=== PATIENT | female | born 1970 | race Caucasian/White ===

== ENCOUNTER 2016-08-17 11:37 | Outpatient (CLI) | payer OTHER | END 2016-08-17 11:38 | DX: E87.6 Hypokalemia (principal) ==

== ENCOUNTER 2017-04-19 15:36 | Outpatient (CLI) | payer OTHER ==
--- NOTE | 2017-04-21 11:22 | Ultrasound Report ---
DATE OF SERVICE: 04/19/2017 PELVIC ULTRASOUND TRANSABDOMINAL AND ENDOVAGINAL: 04/19/2017 COMPARISON: Pelvic ultrasound 11/25/2015. INDICATION: Menorrhagia. TECHNIQUE: Transabdominal pelvic ultrasound performed for global evaluation. Transvaginal pelvic ultrasound performed for detailed evaluation. Real-time scanning performed and static images obtained. FINDINGS: Again seen are uterine fibroids. There is a mid fundal fibroid measuring up to 3.3 cm, essentially unchanged. There is a fibroid of the right uterine body, which is submucosal that measures 2.8 cm. There is a mid anterior fibroid measuring up to 1.2 cm. These appear stable given differences in technique. The endometrial stripe measures 12 mm, normal for a premenopausal woman. Right ovarian cyst measures 3.8 cm. The ovaries appear otherwise unremarkable with normal appearing blood flow. There is trace simple appearing free fluid in the cul-de-sac. IMPRESSION: SUBMUCOSAL FIBROID MEASURES 2.8 CM. THIS AND OTHER UTERINE FIBROIDS APPEAR UNCHANGED DURING THE STUDY INTERVAL. RIGHT OVARIAN CYST VERSUS DOMINANT FOLLICLE. TD: 04/20/2017 11:01 AUBREE
== END 2017-04-19 15:37 | disposition home or self-care (01) ==
LOC: DI 15:36
PROVIDERS: ATTEND Physician Assistant Medical
DX: D25.0 Submucous leiomyoma of uterus (principal); D25.9 Leiomyoma of uterus, unspecified
CPT/HCPCS: 76830; 76856

== ENCOUNTER 2017-05-23 09:30 | Outpatient (CLI) | payer OTHER ==
[2017-05-23 13:10] LABS: BASOPHILS % (AUTO) 0.6 %; EOSINOPHILS # (AUTO) 0.1 10^3/uL (0.0-0.7); EOSINOPHILS % (AUTO) 2.4 %; HGB - HEMOGLOBIN 11.1 g/dL (12.0-16.0); LYMPHOCYTES # (AUTO) 1.4 10^3/uL (1.5-3.5); LYMPHOCYTES % (AUTO) 29.5 %; MEAN CORPUSCULAR HEMOGLOBIN 24.9 pg (27.0-31.0); MEAN CORPUSCULAR HGB CONC 33.3 g/dL (32.0-36.0); MEAN PLATELET VOLUME 7.9 fL (7.9-10.8); MONOCYTES # (AUTO) 0.2 10^3/uL (0.0-1.0); MONOCYTES % (AUTO) 4.9 %; NEUTROPHILS # (AUTO) 2.9 10^3/uL (1.5-6.6); NEUTROPHILS % (AUTO) 62.6 %; PLT - PLATELET COUNT 233 10^3/uL (130-450); RED BLOOD COUNT 4.44 10^6/uL (4.20-5.40); RED CELL DISTRIBUTION WIDTH 15.3 % (12.0-15.0); WHITE BLOOD COUNT 4.6 x10^3/uL (4.8-10.8)
[2017-05-23 13:37] LABS: ALBUMIN 4.5 g/dL (3.2-5.5); ALBUMIN/GLOBULIN RATIO 1.7 (1.0-2.2); ALKALINE PHOSPHATASE 38 IU/L (42-121); ALT ALANINE AMINOTRANSFERASE 25 IU/L (10-60); AST ASPARTATE AMINOTRANSFERASE 17 IU/L (10-42); BILIRUBIN,TOTAL 0.4 mg/dL (0.2-1.0); BUN - BLOOD UREA NITROGEN 15 mg/dL (6-20); CALCIUM 8.8 mg/dL (8.5-10.3); CARBON DIOXIDE - CO2 26 mmol/L (21-32); CHLORIDE 103 mmol/L (101-111); CHOL/HDL RATIO 5.3 (<4.4); CHOLESTEROL 208 mg/dL; CREATININE 0.5 mg/dL (0.4-1.0); GFR - MDRD 133 (>89); GLUCOSE 252 mg/dL (70-100); HDL CHOLESTEROL 39 mg/dL; LDL CHOLESTEROL,CALCULATED 121 mg/dL; LDL/HDL RATIO 3.1 (<4.4); SODIUM 133 mmol/L (135-145); TOTAL PROTEIN 7.1 g/dL (6.7-8.2); VLDL CHOLESTEROL 48 mg/dL
[2017-05-23 14:20] LABS: HB2 TOTAL 11.8 g/dL; HEMOGLOBIN A1C 0.86 g/dL; HEMOGLOBIN A1C % 8.8 % (4.6-6.2)
== END 2017-05-23 09:31 | disposition home or self-care (01) ==
LOC: LAB.WCP 09:30
PROVIDERS: ATTEND Physician Assistant Medical
DX: Z00.00 Encounter for general adult medical examination without abnormal findings (principal); E11.9 Type 2 diabetes mellitus without complications
CPT/HCPCS: 36415; 80053; 80061; 82043; 83036; 83721; 84443; 85025

== ENCOUNTER 2017-06-08 15:30 | Outpatient (CLI) | payer OTHER | END 2017-06-08 15:31 | disposition home or self-care (01) | LOC: LAB.WCP 15:30 | PROVIDERS: ATTEND Physician Assistant Medical | DX: J06.9 Acute upper respiratory infection, unspecified (principal) | CPT/HCPCS: 87275; 87276 ==

== ENCOUNTER 2017-09-21 08:00 | Outpatient (CLI) | payer OTHER ==
[2017-09-21 12:46] LABS: HB2 TOTAL 14.4 g/dL; HEMOGLOBIN A1C 1.45 g/dL; HEMOGLOBIN A1C % 11.4 % (4.6-6.2)
[2017-09-21 12:50] LABS: ALBUMIN 3.9 g/dL (3.2-5.5); ALBUMIN/GLOBULIN RATIO 1.3 (1.0-2.2); ALKALINE PHOSPHATASE 44 IU/L (42-121); ALT ALANINE AMINOTRANSFERASE 22 IU/L (10-60); AST ASPARTATE AMINOTRANSFERASE 20 IU/L (10-42); BILIRUBIN,TOTAL 0.5 mg/dL (0.2-1.0); BUN - BLOOD UREA NITROGEN 14 mg/dL (6-20); CALCIUM 8.5 mg/dL (8.5-10.3); CARBON DIOXIDE - CO2 26 mmol/L (21-32); CHLORIDE 97 mmol/L (101-111); CHOL/HDL RATIO 4.9 (<4.4); CHOLESTEROL 224 mg/dL; CREATININE 0.5 mg/dL (0.4-1.0); GFR - MDRD 133 (>89); GLUCOSE 223 mg/dL (70-100); HDL CHOLESTEROL 46 mg/dL; LDL CHOLESTEROL,CALCULATED 129 mg/dL; LDL/HDL RATIO 2.8 (<4.4); SODIUM 131 mmol/L (135-145); TOTAL PROTEIN 6.8 g/dL (6.7-8.2); VLDL CHOLESTEROL 49 mg/dL
== END 2017-09-21 08:01 | disposition home or self-care (01) ==
LOC: LAB.WCP 08:00
PROVIDERS: ATTEND Physician Assistant Medical
DX: E11.9 Type 2 diabetes mellitus without complications (principal)
CPT/HCPCS: 36415; 80053; 80061; 83036; 83721

== ENCOUNTER 2017-09-21 14:16 | Outpatient (CLI) | payer OTHER ==
--- NOTE | 2017-09-21 18:19 | XRAY Report ---
RIGHT KNEE, THREE VIEWS: 09/21/2017 HISTORY: Pain. FINDINGS: Three views of the right knee show no evidence of fracture, malalignment, joint space narrowing, joint effusion, soft tissue swelling or other abnormality. IMPRESSION: NEGATIVE THREE VIEW RIGHT KNEE. TD: 09/21/2017 16:23
== END 2017-09-21 14:17 | disposition home or self-care (01) ==
LOC: DI 14:16
PROVIDERS: ATTEND Physician Assistant Medical
DX: M25.561 Pain in right knee (principal); E11.9 Type 2 diabetes mellitus without complications
CPT/HCPCS: 36415; 80053; 80061; 83036; 83721

== ENCOUNTER 2017-10-11 15:00 | Outpatient (CLI) | payer OTHER ==
[2017-10-11 18:59] LABS: BASOPHILS % (AUTO) 0.5 %; EOSINOPHILS # (AUTO) 0.2 10^3/uL (0.0-0.7); EOSINOPHILS % (AUTO) 3.1 %; HGB - HEMOGLOBIN 13.2 g/dL (12.0-16.0); LYMPHOCYTES # (AUTO) 1.9 10^3/uL (1.5-3.5); MEAN CORPUSCULAR HEMOGLOBIN 26.7 pg (27.0-31.0); MEAN CORPUSCULAR HGB CONC 33.8 g/dL (32.0-36.0); MEAN PLATELET VOLUME 7.8 fL (7.9-10.8); MONOCYTES # (AUTO) 0.2 10^3/uL (0.0-1.0); MONOCYTES % (AUTO) 3.7 %; NEUTROPHILS # (AUTO) 4.2 10^3/uL (1.5-6.6); NEUTROPHILS % (AUTO) 63.7 %; PLT - PLATELET COUNT 265 10^3/uL (130-450); RED BLOOD COUNT 4.94 10^6/uL (4.20-5.40); RED CELL DISTRIBUTION WIDTH 17.4 % (12.0-15.0); WHITE BLOOD COUNT 6.7 x10^3/uL (4.8-10.8)
[2017-10-11 19:13] LABS: ALBUMIN 4.4 g/dL (3.2-5.5); ALBUMIN/GLOBULIN RATIO 1.6 (1.0-2.2); BILIRUBIN,TOTAL 0.5 mg/dL (0.2-1.0); CALCIUM 9.3 mg/dL (8.5-10.3); CREATININE 0.6 mg/dL (0.4-1.0); TOTAL PROTEIN 7.2 g/dL (6.7-8.2)
== END 2017-10-11 15:01 | disposition home or self-care (01) ==
LOC: LAB.WCP 15:00
PROVIDERS: ATTEND Family Medicine
DX: R10.9 Unspecified abdominal pain (principal)
CPT/HCPCS: 36415; 80053; 83690; 85025

== ENCOUNTER 2017-10-26 06:15 | Outpatient (CLI) | payer OTHER ==
[2017-10-26] MEDS ORDERED: IOPAMIDOL-300 100 ML VIAL ONE (06:33)
[2017-10-26] MEDS ORDERED: IOPAMIDOL-300 50 ML VIAL ONE ×2 (06:33→07:10)
[2017-10-26] MEDS ORDERED: IOPAMIDOL-300 50 ML VIAL PO ONE (07:44)
[2017-10-26] MEDS ORDERED: IOPAMIDOL-300 100 ML VIAL IVP ONE (07:44)
--- NOTE | 2017-10-26 09:40 | CT Report ---
Procedure Date: 10/26/2017 Accession Number: [id number] / [id number] Procedure: CT - Abdomen/Pelvis W/ CPT Code: FULL RESULT: EXAM: Abdomen/Pelvis W/ DATE: 10/26/2017 7:40 AM CLINICAL HISTORY: ABDOMINAL PAIN COMPARISON: Pelvic ultrasound 04/19/2017 TECHNIQUE: Routine helical CT imaging was performed through the abdomen and pelvis. IV contrast: 100 mL Isovue 300. Enteric contrast: Yes. Reconstructions: Coronal and sagittal. In accordance with CT protocol optimization, one or more of the following dose reduction techniques were utilized for this exam: automated exposure control, adjustment of mA and/or KV based on patient size, or use of iterative reconstructive technique. FINDINGS: Lung Bases: Unremarkable. Liver: Normal. No masses. Gallbladder/Bile Ducts: Postoperative changes of cholecystectomy. Spleen: Normal. Pancreas: Normal. Adrenal Glands: Normal. Kidneys: Normal. No masses or hydronephrosis. Peritoneal Cavity/Bowel: Normal. No free fluid, free air or adenopathy. No masses or acute inflammatory process. Pelvic Organs: The uterus demonstrates leiomyomatous, better evaluated on previous ultrasound. No free fluid is present. No pelvic adenopathy. Vasculature: No aneurysms or other significant abnormality. Bones: No significant abnormality. Other: None. IMPRESSION: Leiomyomatous uterus. Otherwise, normal CT of the abdomen and pelvis. [facility]
== END 2017-10-26 06:16 | disposition home or self-care (01) ==
LOC: DI 06:15
PROVIDERS: ATTEND Family Medicine
DX: D25.9 Leiomyoma of uterus, unspecified (principal)
CPT/HCPCS: 74177; Q9967

== ENCOUNTER 2018-01-17 09:15 | Outpatient (CLI) | payer OTHER | END 2018-01-17 09:16 | LOC: LAB.WCP 09:15 | PROVIDERS: ATTEND Physician Assistant Medical | DX: N76.0 Acute vaginitis (principal) | CPT/HCPCS: 87480; 87510; 87660 ==

== ENCOUNTER 2018-01-20 08:00 | Outpatient (CLI) | payer OTHER | END 2018-01-20 08:01 | disposition home or self-care (01) | LOC: LAB.R 08:00 | PROVIDERS: ATTEND Physician Assistant | DX: N76.0 Acute vaginitis (principal) | CPT/HCPCS: 87491; 87591 ==

== ENCOUNTER → 2018-02-22 | Outpatient (CLI) | payer OTHER | LOC: LAB.WCP 13:30 | PROVIDERS: ATTEND Physician Assistant Medical | DX: Z20.2 Contact with and (suspected) exposure to infections with a predominantly sexual mode of transmission (principal) | CPT/HCPCS: 87491; 87591 ==

== ENCOUNTER 2018-06-22 09:33 | Outpatient (CLI) | payer OTHER ==
--- NOTE | 2018-06-22 14:53 | XRAY Report ---
Reason: KNEE PAIN, LEFT Procedure Date: 06/22/2018 Accession Number: [id number] / [id number] Procedure: WCP - Knee 3 View LT CPT Code: FULL RESULT: EXAM: LEFT KNEE RADIOGRAPHY EXAM DATE: 06/22/2018 09:48 AM. CLINICAL HISTORY: KNEE PAIN, LEFT. COMPARISON: KNEE 3 VIEW RT 09/21/2017 2:24 PM. TECHNIQUE: 3 views. FINDINGS: Bones: Normal. No fractures or bone lesions. Joints: Normal. No effusion. No subluxations. Soft Tissues: Normal. No soft tissue swelling. IMPRESSION: Normal knee radiography. [facility]
== END 2018-06-22 09:34 | disposition home or self-care (01) ==
LOC: DI.WCP 09:33
PROVIDERS: ATTEND Physician Assistant Medical
DX: M25.562 Pain in left knee (principal); E11.9 Type 2 diabetes mellitus without complications; Z20.2 Contact with and (suspected) exposure to infections with a predominantly sexual mode of transmission
CPT/HCPCS: 36415; 80053; 80061; 81599; 83036; 86695; 86696; 87389; 87491; 87591

== ENCOUNTER 2018-06-22 10:00 | Outpatient (CLI) | payer OTHER ==
[2018-06-22 14:10] LABS: ALBUMIN/GLOBULIN RATIO 1.8 (1.0-2.2); ALKALINE PHOSPHATASE 47 IU/L (42-121); ALT ALANINE AMINOTRANSFERASE 25 IU/L (10-60); AST ASPARTATE AMINOTRANSFERASE 18 IU/L (10-42); BILIRUBIN,TOTAL 0.5 mg/dL (0.2-1.0); BUN - BLOOD UREA NITROGEN 16 mg/dL (6-20); CALCIUM 9.8 mg/dL (8.5-10.3); CARBON DIOXIDE - CO2 27 mmol/L (21-32); CHLORIDE 101 mmol/L (101-111); CHOL/HDL RATIO 4.2 (<4.4); CHOLESTEROL 221 mg/dL; CREATININE 0.4 mg/dL (0.4-1.0); GFR - MDRD 171 (>89); GLUCOSE 232 mg/dL (70-100); HDL CHOLESTEROL 53 mg/dL; LDL CHOLESTEROL,CALCULATED 134 mg/dL; LDL/HDL RATIO 2.5 (<4.4); SODIUM 137 mmol/L (135-145); TOTAL PROTEIN 7.8 g/dL (6.7-8.2); VLDL CHOLESTEROL 34 mg/dL
[2018-06-22 14:49] LABS: HB2 TOTAL 14.7 g/dL; HEMOGLOBIN A1C 1.09 g/dL; HEMOGLOBIN A1C % 8.9 % (4.6-6.2)
[2018-06-23 13:22] LABS: HIV AG/AB 4TH GEN NON-REACTIVE (NON-REACTIVE)
[2018-06-24 10:31] LABS: HSV 1 IGG TYPE SPECIFIC AB 34.9 index; HSV 2 IGG TYPE SPECIFIC AB 8.36 index
== END 2018-06-22 10:01 | disposition home or self-care (01) ==
LOC: LAB.WCP 10:00
PROVIDERS: ATTEND Physician Assistant Medical
DX: E11.9 Type 2 diabetes mellitus without complications (principal); Z20.2 Contact with and (suspected) exposure to infections with a predominantly sexual mode of transmission
CPT/HCPCS: 36415; 80053; 80061; 81599; 83036; 83721; 86695; 86696; 87389; 87491; 87591

== ENCOUNTER 2019-10-03 10:59 | Outpatient (CLI) | payer OTHER ==
--- NOTE | 2019-10-03 11:55 | XRAY Report ---
Reason: RIGHT WRIST CONTUSION Procedure Date: 10/03/2019 Accession Number: [id number] / [id number] Procedure: WCP - Wrist 3 View RT CPT Code: Final Report FULL RESULT: PROCEDURE: Wrist 3 View RT INDICATIONS: RIGHT WRIST CONTUSION TECHNIQUE: 3 views of the wrist were acquired. COMPARISON: Report from radiograph 09/17/2019 FINDINGS: Bones: No fractures or dislocations. No suspicious bony lesions. Soft tissues: No suspicious soft tissue calcifications. There is mild dorsal soft tissue swelling, mainly over the distal metadiaphyses of the radius and ulna. IMPRESSION: 1. Intact right wrist without radiographic evidence of healing fracture. There is mild soft tissue swelling dorsally and soft tissue injury or osseous contusion could be considered.. Reviewed by: Belle Castillo MD on 10/03/2019 11:54 AM PDT Approved by: Belle Castillo MD on 10/03/2019 11:54 AM PDT Station ID: [id number]
== END 2019-10-03 23:59 | disposition home or self-care (01) ==
LOC: DI.WCP 10:59
PROVIDERS: ATTEND Physician Assistant Medical
DX: S60.211D Contusion of right wrist, subsequent encounter (principal)

== ENCOUNTER 2020-01-10 08:00 | Outpatient (CLI) | payer OTHER ==
[2020-01-10 11:57] LABS: CREATININE,URINE 43.7 mg/dL; MICROALBUM/CREATININE RATIO,UR 4.6 ug/mg (<30.0); MICROALBUMIN,URINE 0.2 mg/dL (0-300.0)
[2020-01-10 12:04] LABS: ALBUMIN 4.7 g/dL (3.2-5.5); ALBUMIN/GLOBULIN RATIO 1.9 (1.0-2.2); ALKALINE PHOSPHATASE 47 IU/L (42-121); ALT ALANINE AMINOTRANSFERASE 35 IU/L (10-60); AST ASPARTATE AMINOTRANSFERASE 19 IU/L (10-42); BILIRUBIN,TOTAL 0.9 mg/dL (0.2-1.0); BUN - BLOOD UREA NITROGEN 14 mg/dL (6-20); CALCIUM 9.2 mg/dL (8.5-10.3); CARBON DIOXIDE - CO2 27 mmol/L (21-32); CHLORIDE 99 mmol/L (101-111); CHOLESTEROL 190 mg/dL; CREATININE 0.5 mg/dL (0.4-1.0); GLUCOSE 223 mg/dL (70-100); HDL CHOLESTEROL 38 mg/dL; LDL CHOLESTEROL,CALCULATED 79 mg/dL; LDL/HDL RATIO 2.1 (<4.4); SODIUM 133 mmol/L (135-145); TOTAL PROTEIN 7.2 g/dL (6.7-8.2); VLDL CHOLESTEROL 73 mg/dL
[2020-01-10 12:23] LABS: HEMOGLOBIN A1c% 10.3 % (4.27-6.07)
== END 2020-01-10 23:59 | disposition home or self-care (01) ==
LOC: LAB.WCP 08:00
PROVIDERS: ATTEND Physician Assistant Medical
DX: E11.9 Type 2 diabetes mellitus without complications (principal)
CPT/HCPCS: 36415; 80053; 80061; 82043; 82570; 83036; 83721; 84443

== ENCOUNTER 2020-05-23 07:27 | Outpatient (CLI) | payer OTHER ==
[2020-05-23 12:54] LABS: CALCIUM 9.6 mg/dL (8.5-10.3); CREATININE 0.5 mg/dL (0.4-1.0)
[2020-05-23 13:37] LABS: HEMOGLOBIN A1c% 8.2 % (4.27-6.07)
== END 2020-05-23 23:59 | disposition home or self-care (01) ==
LOC: LAB.WCP 07:27
PROVIDERS: ATTEND Physician Assistant Medical
DX: E11.9 Type 2 diabetes mellitus without complications (principal)
CPT/HCPCS: 36415; 80048; 83036

== ENCOUNTER 2020-09-08 08:00 | Outpatient (CLI) | payer OTHER ==
[2020-09-08 12:22] LABS: ALBUMIN 4.9 g/dL (3.2-5.5); ALBUMIN/GLOBULIN RATIO 1.8 (1.0-2.2); ALKALINE PHOSPHATASE 54 IU/L (42-121); ALT ALANINE AMINOTRANSFERASE 32 IU/L (10-60); AST ASPARTATE AMINOTRANSFERASE 16 IU/L (10-42); BILIRUBIN,TOTAL 0.5 mg/dL (0.2-1.0); BUN - BLOOD UREA NITROGEN 15 mg/dL (6-20); CALCIUM 9.7 mg/dL (8.5-10.3); CARBON DIOXIDE - CO2 28 mmol/L (21-32); CHLORIDE 97 mmol/L (101-111); CHOL/HDL RATIO 6.1 (<4.4); CHOLESTEROL 268 mg/dL; CREATININE 0.7 mg/dL (0.4-1.0); GFR - MDRD 89 (>89); GLUCOSE 260 mg/dL (70-100); HDL CHOLESTEROL 44 mg/dL; SODIUM 132 mmol/L (135-145); TOTAL PROTEIN 7.7 g/dL (6.7-8.2); TRIGLYCERIDES 465 mg/dL
[2020-09-08 12:50] LABS: ESTIMATED AVERAGE GLUCOSE 235 mg/dL (70-100); HEMOGLOBIN A1c% 9.8 % (4.27-6.07)
[2020-09-08 12:57] LABS: LDL CHOLESTEROL,DIRECT 133 mg/dL
== END 2020-09-08 23:59 | disposition home or self-care (01) ==
LOC: LAB.WCP 08:00
PROVIDERS: ATTEND Physician Assistant Medical
DX: E11.9 Type 2 diabetes mellitus without complications (principal)
CPT/HCPCS: 36415; 80053; 80061; 83036; 83721

== ENCOUNTER → 2020-11-24 | Outpatient (CLI) | payer OTHER | LOC: LAB.N 08:00 | PROVIDERS: ATTEND Nurse Practitioner | DX: R05 Cough (principal); Z20.822 Contact with and (suspected) exposure to COVID-19 ==

== ENCOUNTER 2020-11-27 13:21 | Outpatient (CLI) | payer OTHER ==
--- NOTE | 2020-11-27 15:11 | XRAY Report ---
PROCEDURE: Ankle 3 View LT INDICATIONS: CONTUSION TO LEFT ANKLE TECHNIQUE: 3 views of the ankle were acquired. COMPARISON: None. FINDINGS: Bones: No acute fractures or dislocations. Ankle mortise is normally aligned. No suspicious bony l esions. Soft tissues: No suspicious soft tissue calcification. Soft tissue edema is seen at the medial ankle. IMPRESSION: No acute osseous abnormality. If there is clinical concern or persistent symptoms, addit ional imaging such as repeat radiographs or advanced imaging (e.g. CT, MRI) may be helpful for furthe r evaluation. Reviewed by: Marino Flores MD on 11/27/2020 3:10 PM PDT Approved by: Marino Flores MD on 11/27/2020 3:10 PM PDT Station ID: [id number]
--- NOTE | 2020-11-27 15:12 | XRAY Report ---
PROCEDURE: Foot 3 View LT INDICATIONS: CONTUSION TO LEFT ANKLE TECHNIQUE: 3 views of the foot were acquired. COMPARISON: None. FINDINGS: Bones: No acute fractures or dislocations. No suspicious bony lesions. Mild degenerative changes at the first metatarsophalangeal joint. Soft tissues: Soft tissue edema is seen at the medial aspect of the hindfoot. IMPRESSION: No acute osseous abnormality. If there is clinical concern or persistent symptoms, additional imaging such as repeat radiographs or advanced imaging (e.g. CT, MRI) may be helpful for further evaluation. Reviewed by: Marino Flores MD on 11/27/2020 3:11 PM PDT Approved by: Marino Flores MD on 11/27/2020 3:11 PM PDT Station ID: [id number]
== END 2020-11-27 23:59 | disposition home or self-care (01) ==
LOC: DI.N 13:21
PROVIDERS: ATTEND Physician Assistant Medical
DX: S90.02XA Contusion of left ankle, initial encounter (principal)

== ENCOUNTER 2021-01-01 07:49 | Outpatient (CLI) | payer OTHER ==
--- NOTE | 2021-01-01 14:33 | XRAY Report ---
PROCEDURE: Foot 3 View LT INDICATIONS: LEFT FOOT PAIN TECHNIQUE: 3 weight bearing views of the left foot and single AP weightbearing view of the right amanda t were acquired. COMPARISON: 11/27/2020 FINDINGS: Bones: No fractures or dislocations. No suspicious bony lesions. Normal alignment on weightbearing views. Soft tissues: No tibiotalar joint effusion. Achilles tendon appears normal. IMPRESSION: Left foot without acute osseous abnormalities. Normal alignment on weightbearing views. If there is continued clinical concern for pathology or occult fracture, consider advanced imaging ( CT, MRI, bone scan) if symptoms persist. Reviewed by: Andry Perales MD on 01/01/2021 2:31 PM PDT Approved by: Andry Perales MD on 01/01/2021 2:31 PM PDT Station ID: [id number]
== END 2021-01-01 23:59 | disposition home or self-care (01) ==
LOC: DI.N 07:49
PROVIDERS: ATTEND Physician Assistant
DX: M79.672 Pain in left foot (principal)

== ENCOUNTER 2021-05-07 08:17 | Outpatient (CLI) | payer OTHER ==
[2021-05-07 12:16] LABS: BASOPHILS % (AUTO) 0.8 %; EOSINOPHILS # (AUTO) 0.1 10^3/uL (0.0-0.7); EOSINOPHILS % (AUTO) 3.6 %; HCT - HEMATOCRIT 39.9 % (37.0-47.0); HGB - HEMOGLOBIN 13.8 g/dL (12.0-16.0); LYMPHOCYTES # (AUTO) 1.3 10^3/uL (1.5-3.5); LYMPHOCYTES % (AUTO) 33.7 %; MEAN CORPUSCULAR HGB CONC 34.6 g/dL (32.0-36.0); MEAN CORPUSCULAR VOLUME 83.8 fL (81.0-99.0); MEAN PLATELET VOLUME 9.9 fL (7.9-10.8); MONOCYTES # (AUTO) 0.2 10^3/uL (0.0-1.0); MONOCYTES % (AUTO) 4.7 %; NEUTROPHILS # (AUTO) 2.2 10^3/uL (1.5-6.6); NEUTROPHILS % (AUTO) 56.9 %; PLT - PLATELET COUNT 208 10^3/uL (130-450); RED BLOOD COUNT 4.76 10^6/uL (4.20-5.40); RED CELL DISTRIBUTION WIDTH 11.6 % (12.0-15.0); WHITE BLOOD COUNT 3.9 x10^3/uL (4.8-10.8)
[2021-05-07 12:47] LABS: CALCIUM 9.6 mg/dL (8.5-10.3); CREATININE 0.4 mg/dL (0.4-1.0); CREATININE,URINE 62.9 mg/dL; MICROALBUMIN,URINE 2.2 mg/dL (0-300.0); POTASSIUM 4.4 mmol/L (3.5-5.0)
[2021-05-07 12:53] LABS: THYROID STIMULATING HORMONE 0.49 uIU/mL (0.34-5.60)
[2021-05-07 18:13] LABS: ESTIMATED AVERAGE GLUCOSE 214 mg/dL (70-100); HEMOGLOBIN A1c% 9.1 % (4.27-6.07)
== END 2021-05-07 23:59 | disposition home or self-care (01) ==
LOC: LAB.WCP 08:17
PROVIDERS: ATTEND Physician Assistant Medical
DX: E11.9 Type 2 diabetes mellitus without complications (principal); K21.9 Gastro-esophageal reflux disease without esophagitis
CPT/HCPCS: 36415; 80048; 82043; 82570; 83036; 84443; 85025

== ENCOUNTER 2021-07-29 11:06 | Outpatient (CLI) | payer OTHER ==
[2021-07-29 18:45] LABS: ALBUMIN/GLOBULIN RATIO 1.8 (1.0-2.2); ALKALINE PHOSPHATASE 46 IU/L (42-121); ALT ALANINE AMINOTRANSFERASE 27 IU/L (10-60); AST ASPARTATE AMINOTRANSFERASE 16 IU/L (10-42); BILIRUBIN,TOTAL 0.8 mg/dL (0.2-1.0); BUN - BLOOD UREA NITROGEN 19 mg/dL (6-20); CALCIUM 9.9 mg/dL (8.5-10.3); CARBON DIOXIDE - CO2 27 mmol/L (21-32); CHLORIDE 100 mmol/L (101-111); CHOL/HDL RATIO 3.9 (<4.4); CHOLESTEROL 165 mg/dL; CREATININE 0.7 mg/dL (0.4-1.0); GFR - MDRD 89 (>89); GLUCOSE 140 mg/dL (70-100); HDL CHOLESTEROL 42 mg/dL; LDL CHOLESTEROL,CALCULATED 84 mg/dL; POTASSIUM 4.5 mmol/L (3.5-5.0); SODIUM 137 mmol/L (135-145); TOTAL PROTEIN 7.8 g/dL (6.7-8.2); TRIGLYCERIDES 196 mg/dL; VLDL CHOLESTEROL 39 mg/dL
== END 2021-07-29 11:07 | disposition home or self-care (01) ==
LOC: LAB.N 11:06
PROVIDERS: ATTEND Physician Assistant Medical
DX: E78.5 Hyperlipidemia, unspecified (principal)
CPT/HCPCS: 36415; 80053; 80061; 81599; 83036; 83721

== ENCOUNTER 2021-08-05 08:07 | Outpatient (CLI) | payer OTHER ==
--- NOTE | 2021-08-05 17:11 | XRAY Report ---
PROCEDURE: Cervical Spine 2 View INDICATIONS: CERVICAL RADICULOPATHY TECHNIQUE: 2 view(s) of the cervical spine were acquired. COMPARISON: None. FINDINGS: Bones: No fractures or dislocations to the C7-T1 level. Minimal 2 mm anterolisthesis of C4 on C5 is seen. Mild degenerative endplate changes are seen at C4-5 and C5-6 levels. The lateral masses of C1 appear intact on the odontoid view. No suspicious bony lesions. Soft tissues: No prevertebral soft tissue swelling. IMPRESSION: 2 mm anterolisthesis of C4 on C5. No acute fracture or dislocation. Degenerative disc di sease in mid to lower cervical spine. Reviewed by: Tesfaye Ellis MD on 08/05/2021 5:10 PM PDT Approved by: Tesfaye Ellis MD on 08/05/2021 5:10 PM PDT Station ID: [id number]
== END 2021-08-05 08:08 | disposition home or self-care (01) ==
LOC: DI.N 08:07
PROVIDERS: ATTEND Physician Assistant Medical
DX: M50.321 Other cervical disc degeneration at C4-C5 level (principal); M43.12 Spondylolisthesis, cervical region

== ENCOUNTER 2022-01-26 11:27 | Outpatient (CLI) | payer OTHER ==
--- NOTE | 2022-01-26 16:55 | XRAY Report ---
PROCEDURE: Chest 2 View X-Ray INDICATIONS: PLEURITIC CHEST PX TECHNIQUE: 2 view(s) of the chest. COMPARISON: None. FINDINGS: Surgical changes and devices: Cholecystectomy clips. Lungs and pleura: No pleural effusions or pneumothorax. Lungs are clear. Mediastinum: Mediastinal contours are normal. Heart size is normal. Bones and chest wall: No suspicious bony abnormalities. Soft tissues appear unremarkable. IMPRESSION: No acute cardiopulmonary disease. Reviewed by: Belle Castillo MD on 01/26/2022 4:54 PM PDT Approved by: Belle Castillo MD on 01/26/2022 4:54 PM PDT Station ID: [id number]
== END 2022-01-26 11:28 | disposition home or self-care (01) ==
LOC: DI.N 11:27
PROVIDERS: ATTEND Family Medicine
DX: R07.81 Pleurodynia (principal)

== ENCOUNTER 2022-02-15 09:25 | Outpatient (CLI) | payer OTHER ==
[2022-02-15 13:07] LABS: ESTIMATED AVERAGE GLUCOSE 217 mg/dL (70-100); HEMOGLOBIN A1c% 9.2 % (4.27-6.07)
[2022-02-15 13:09] LABS: ALBUMIN 4.9 g/dL (3.2-5.5); ALKALINE PHOSPHATASE 49 IU/L (42-121); ALT ALANINE AMINOTRANSFERASE 30 IU/L (10-60); AST ASPARTATE AMINOTRANSFERASE 17 IU/L (10-42); BILIRUBIN,TOTAL 0.6 mg/dL (0.2-1.0); BUN - BLOOD UREA NITROGEN 7 mg/dL (6-20); CHOL/HDL RATIO 4.1 (<4.4); CHOLESTEROL 197 mg/dL; CREATININE 0.4 mg/dL (0.4-1.0); GFR - MDRD 168 (>89); HDL CHOLESTEROL 48 mg/dL; LDL CHOLESTEROL,CALCULATED 113 mg/dL; LDL/HDL RATIO 2.4 (<4.4); TOTAL PROTEIN 7.3 g/dL (6.7-8.2); TRIGLYCERIDES 182 mg/dL; VLDL CHOLESTEROL 36 mg/dL
[2022-02-15 13:28] LABS: CALCIUM 9.6 mg/dL (8.5-10.3); CARBON DIOXIDE - CO2 26 mmol/L (21-32); CHLORIDE 103 mmol/L (101-111); GLUCOSE 209 mg/dL (70-100); POTASSIUM 4.2 mmol/L (3.5-5.0); SODIUM 138 mmol/L (135-145)
== END 2022-02-15 09:26 | disposition home or self-care (01) ==
LOC: LAB.N 09:25
PROVIDERS: ATTEND Physician Assistant Medical
DX: E11.9 Type 2 diabetes mellitus without complications (principal); E78.5 Hyperlipidemia, unspecified
CPT/HCPCS: 36415; 80053; 80061; 83036; 83721

== ENCOUNTER 2022-02-24 08:00 | Outpatient (CLI) | payer OTHER | END 2022-02-24 23:59 | disposition home or self-care (01) | LOC: LAB.WCP 08:00 | PROVIDERS: ATTEND Physician Assistant Medical | DX: R05.9 Cough, unspecified (principal); Z20.822 Contact with and (suspected) exposure to COVID-19 ==

== ENCOUNTER 2022-04-26 14:43 | Outpatient (CLI) | payer OTHER ==
[2022-04-26] MEDS ORDERED: iohexoL-300 100 ML VIAL ONE (14:47)
[2022-04-26] MEDS ORDERED: DIATRIZOATE MEGLU/DIATRIZO SOD 30 ML BOTTLE PO ONE ×2 (14:47→16:21)
[2022-04-26 15:09] LABS: ALBUMIN 4.6 g/dL (3.2-5.5); ALBUMIN/GLOBULIN RATIO 1.5 (1.0-2.2); BILIRUBIN,TOTAL 0.5 mg/dL (0.2-1.0); CALCIUM 9.5 mg/dL (8.5-10.3); CREATININE 0.6 mg/dL (0.4-1.0); POTASSIUM 4.3 mmol/L (3.5-5.0); TOTAL PROTEIN 7.6 g/dL (6.7-8.2)
[2022-04-26] MEDS ORDERED: iohexoL-300 100 ML VIAL IVP ONE (16:20)
--- NOTE | 2022-04-26 16:23 | CT Report ---
PROCEDURE: ABDOMEN/PELVIS W INDICATIONS: LEFT LOWER QUAD ABD PAIN CONTRAST: 100mL Omni 300 TECHNIQUE: After the administration of IV and oral contrast, 5 mm thick sections acquired from the diaphragms to the symphysis. 5 mm thick coronal and sagittal reformats were acquired. For radiation dose reducti on, the following was used: automated exposure control, adjustment of mA and/or kV according to sona ent size. COMPARISON: 10/26/2017. FINDINGS: Image quality: Excellent. ABDOMEN: Lung bases: Lung bases are clear. Heart size is normal. Solid organs: The spleen is normal in size and enhancement. There is hepatomegaly, no discrete hepati c lesion. Gallbladder is surgically absent. Biliary system is non dilated. Pancreas enhances normal ly. No adrenal nodules. Kidneys demonstrate normal size and enhancement, without hydronephrosis. Peritoneum and bowel: There is no bowel obstruction. No gastric or small bowel wall thickening. Quest ionable ascending colon wall thickening is noted with mild narrowing of the lumen, no gross transvers e or descending colon wall thickening. No sigmoid colon wall thickening or mesenteric fat stranding. No abscess collection. No free fluid of free air. Mild fecal stasis in the colon is seen. Nodes and vessels: No retroperitoneal or mesenteric adenopathy by size criteria. Aorta and inferior vena cava are normal in size. Miscellaneous: No ventral hernias. PELVIS: Genitourinary: Bladder wall thickness is normal. Miscellaneous: No inguinal hernias or adenopathy. Bones: No suspicious bony lesions. No vertebral body compression fractures. IMPRESSION: 1. Questionable ascending colon wall thickening which may represent low-grade colitis. No other area of abnormal bowel wall thickening. No bowel obstruction. No abscess collection. No free fluid of free air. 2. Hepatomegaly, no discrete hepatic lesion. Prior cholecystectomy. Reviewed by: Tesfaye Ellis MD on 04/26/2022 4:22 PM PST Approved by: Tesfaye Ellis MD on 04/26/2022 4:22 PM PST Station ID: [id number]
== END 2022-04-26 14:44 | disposition home or self-care (01) ==
LOC: LAB 14:43
PROVIDERS: ATTEND Physician Assistant Medical
DX: R10.32 Left lower quadrant pain (principal); R16.0 Hepatomegaly, not elsewhere classified; Z90.49 Acquired absence of other specified parts of digestive tract
CPT/HCPCS: 36415; 74177; 80053; Q9963; Q9967

== ENCOUNTER 2022-07-10 09:15 | Outpatient (CLI) | payer OTHER ==
[2022-07-10 19:18] LABS: ALBUMIN 4.6 g/dL (3.2-5.5); ALBUMIN/GLOBULIN RATIO 1.7 (1.0-2.2); ALKALINE PHOSPHATASE 42 IU/L (42-121); ALT ALANINE AMINOTRANSFERASE 24 IU/L (10-60); AST ASPARTATE AMINOTRANSFERASE 15 IU/L (10-42); BILIRUBIN,TOTAL 0.9 mg/dL (0.2-1.0); BUN - BLOOD UREA NITROGEN 19 mg/dL (6-20); CALCIUM 9.4 mg/dL (8.5-10.3); CARBON DIOXIDE - CO2 27 mmol/L (21-32); CHLORIDE 105 mmol/L (101-111); CHOL/HDL RATIO 4.2 (<4.4); CHOLESTEROL 174 mg/dL; CREATININE 0.5 mg/dL (0.4-1.0); GFR - MDRD 130 (>89); GLUCOSE 170 mg/dL (70-100); HDL CHOLESTEROL 41 mg/dL; LDL CHOLESTEROL,CALCULATED 100 mg/dL; LDL/HDL RATIO 2.4 (<4.4); POTASSIUM 4.6 mmol/L (3.5-5.0); SODIUM 139 mmol/L (135-145); TOTAL PROTEIN 7.3 g/dL (6.7-8.2); TRIGLYCERIDES 164 mg/dL; VLDL CHOLESTEROL 33 mg/dL
[2022-07-11 09:19] LABS: ESTIMATED AVERAGE GLUCOSE 194 mg/dL (70-100); HEMOGLOBIN A1c% 8.4 % (4.27-6.07)
== END 2022-07-10 09:16 | disposition home or self-care (01) ==
LOC: LAB.N 09:15
PROVIDERS: ATTEND Physician Assistant Medical
DX: E11.9 Type 2 diabetes mellitus without complications (principal)
CPT/HCPCS: 36415; 80053; 80061; 83036; 83721

== ENCOUNTER 2022-07-27 07:03 | Day surgery (SDC) | payer OTHER ==
[2022-07-27] MEDS ORDERED: LACTATED RINGERS 1,000 ML IV ONE ×2 (07:11→09:09)
--- NOTE | 2022-07-27 07:48 | ANESTHESIA ---
Pre-Anesthesia VS, & Labs - Diagnosis screening - Procedure colonoscopy Vital Signs: Temp Pulse Resp BP Pulse Ox O2 Flow Rate 36 C L 89 16 134/75 H 96 07/27/22 07:15 07/27/22 07:15 07/27/22 07:15 07/27/22 07:15 07/27/22 07:15 Height: 5 ft Weight (kg): 59 kg Body Mass Index: 25.4 BMI Classification: Overweight - NPO Other (prep last at 4am) - Is Patient ?: No - Lab Results Current Lab Results: Laboratory Tests 07/27/22 07:39: POC Whole Bld Glucose 321 H Home Medications and Allergies Home Medications: Ambulatory Orders Empagliflozin [Jardiance] 1 tab PO DAILY 07/26/22 Rosuvastatin Calcium [Crestor] 1 tab PO DAILY 07/26/22 Sertraline [Zoloft] 1 tab PO DAILY 07/26/22 Loratadine [Claritin] 10 mg PO DAILY 08/26/14 Metformin HCl 1,000 mg PO BID 08/26/14 glipiZIDE [Glipizide] 10 mg PO DAILY 08/26/14 hydroCHLOROthiazide [Hydrochlorothiazide] 12.5 mg PO DAILY 08/26/14 lisinopriL [Lisinopril] 5 mg PO DAILY 08/26/14 Empagliflozin [Jardiance] 1 tab PO DAILY 07/26/22 Rosuvastatin Calcium [Crestor] 1 tab PO DAILY 07/26/22 Sertraline [Zoloft] 1 tab PO DAILY 07/26/22 Allergies/Adverse Reactions: Allergies Allergy/AdvReac Type Severity Reaction Status Date / Time No Known Drug Allergies Allergy Verified 07/26/22 13:02 Anes History & Medical History - Anesthetic History Anesthesia Complications: reports: No previous complications - Medical History Cardiovascular: reports: Hypertension Pulmonary: reports: None Gastrointestinal: reports: None Urinary: reports: None Musculoskeletal: reports: None Endocrine/Autoimmune: reports: Type 2 diabetes Skin: reports: None Smoking Status: Never smoker Psychosocial: reports: Alcohol (6 pack on weekends) History of Cancer?: No - Surgical History General: reports: Cholecystectomy, Appendectomy Gynecologic: reports: section, Tubal ligation Exam General: Alert Dental: WNL Mouth Opening: Greater than 4 Fingerbreadths Neck Mobility: Normal Mallampati classification: II Thyromental Distance: greater than 6 cm Respiratory: Lungs clear Cardiovascular: Regular rate Plan Anesthesia Type: Total IV Consent for Procedure(s) Verified and Reviewed: Yes Code Status: Attempt Resuscitation ASA classification: 2-Mild systemic disease Is this case an emergency?: No
[2022-07-27] MEDS ORDERED: INSULIN REGULAR HUMAN 300 UNIT/3 ML VIAL IVP ONE (07:50)
[2022-07-27] MEDS ORDERED: PROPOFOL 500 MG/50 ML 500 MG/50 ML VIAL ONE (08:01)
[2022-07-27] MEDS ORDERED: LIDOCAINE-PF 2% 10 ML AMP SUBQ ONE (08:47)
[2022-07-27 09:25] VITALS: BP 108/64
--- NOTE | 2022-07-27 10:15 | ANESTHESIA POST OP EVALUATION ---
Anesthesia Post Eval - Post Anesthesia Eval Vitals: Last Vital Signs Temp 36.4 C L 07/27/22 09:24 Pulse 90 07/27/22 09:24 Resp 16 07/27/22 09:24 BP 108/64 07/27/22 09:24 Pulse Ox 99 07/27/22 09:24 O2 Flow Rate CV Function Including HR & BP: Stable Pain Control: Satisfactory Nausea & Vomiting: Negative Mental Status: Baseline Respiratory Status: Airway Patent Hydration Status: Satisfactory Anesthesia Complications: None
== END 2022-07-27 07:04 | disposition home or self-care (01) ==
LOC: SDS 07:03
PROVIDERS: ATTEND Surgery
DX: Z12.11 Encounter for screening for malignant neoplasm of colon (principal); E11.9 Type 2 diabetes mellitus without complications; I10 Essential (primary) hypertension; Z79.84 Long term (current) use of oral hypoglycemic drugs; Z87.891 Personal history of nicotine dependence
CPT/HCPCS: 45378; J1815; J7120; 81025

== ENCOUNTER 2022-08-03 08:00 | Outpatient (CLI) | payer OTHER | END 2022-08-03 23:59 | disposition home or self-care (01) | LOC: LAB.WCP 08:00 | PROVIDERS: ATTEND Physician Assistant Medical | DX: R05.9 Cough, unspecified (principal); Z20.822 Contact with and (suspected) exposure to COVID-19 ==

== ENCOUNTER 2023-01-28 10:02 | Outpatient (CLI) | payer OTHER ==
[2023-01-28 12:31] LABS: CALCIUM 9.3 mg/dL (8.5-10.3); CREATININE 0.5 mg/dL (0.6-1.3); POTASSIUM 4.1 mmol/L (3.5-4.5)
[2023-01-28 13:22] LABS: ESTIMATED AVERAGE GLUCOSE 278 mg/dL (70-100); HEMOGLOBIN A1c% 11.3 % (4.27-6.07)
== END 2023-01-28 10:03 | disposition home or self-care (01) ==
LOC: LAB.N 10:02
PROVIDERS: ATTEND Physician Assistant Medical
DX: E11.9 Type 2 diabetes mellitus without complications (principal)
CPT/HCPCS: 36415; 80048; 83036

== ENCOUNTER 2023-04-04 09:01 | Outpatient (CLI) | payer OTHER ==
[2023-04-04 12:44] LABS: BASOPHILS % (AUTO) 0.4 %; EOSINOPHILS # (AUTO) 0.1 10^3/uL (0.0-0.7); EOSINOPHILS % (AUTO) 2.6 %; HCT - HEMATOCRIT 39.3 % (37.0-47.0); HGB - HEMOGLOBIN 13.3 g/dL (12.0-16.0); LYMPHOCYTES # (AUTO) 1.4 10^3/uL (1.5-3.5); LYMPHOCYTES % (AUTO) 31.3 %; MEAN CORPUSCULAR HEMOGLOBIN 29.2 pg (27.0-31.0); MEAN CORPUSCULAR HGB CONC 33.8 g/dL (32.0-36.0); MEAN CORPUSCULAR VOLUME 86.4 fL (81.0-99.0); MEAN PLATELET VOLUME 10.2 fL (7.9-10.8); MONOCYTES # (AUTO) 0.2 10^3/uL (0.0-1.0); MONOCYTES % (AUTO) 4.6 %; NEUTROPHILS # (AUTO) 2.7 10^3/uL (1.5-6.6); NEUTROPHILS % (AUTO) 60.7 %; PLT - PLATELET COUNT 211 10^3/uL (130-450); RED BLOOD COUNT 4.55 10^6/uL (4.20-5.40); RED CELL DISTRIBUTION WIDTH 12.5 % (12.0-15.0); WHITE BLOOD COUNT 4.5 x10^3/uL (4.8-10.8)
[2023-04-04 13:06] LABS: CREATININE,URINE 42.1 mg/dL
[2023-04-04 13:07] LABS: ESTIMATED AVERAGE GLUCOSE 166 mg/dL (70-100); HEMOGLOBIN A1c% 7.4 % (4.27-6.07); MICROALBUMIN,URINE < 0.7 mg/dL
[2023-04-04 13:14] LABS: ALBUMIN 4.9 g/dL (3.2-5.5); ALBUMIN/GLOBULIN RATIO 2.3 (1.0-2.2); ALKALINE PHOSPHATASE 42 IU/L (42-121); ALT ALANINE AMINOTRANSFERASE 18 IU/L (10-60); AST ASPARTATE AMINOTRANSFERASE 11 IU/L (10-42); BILIRUBIN,TOTAL 0.4 mg/dL (0.2-1.0); BUN - BLOOD UREA NITROGEN 15 mg/dL (6-20); CALCIUM 9.7 mg/dL (8.5-10.3); CARBON DIOXIDE - CO2 28 mmol/L (21-32); CHLORIDE 105 mmol/L (101-111); CHOL/HDL RATIO 3.3 (<4.4); CHOLESTEROL 168 mg/dL; CREATININE 0.5 mg/dL (0.6-1.3); GFR - MDRD 130 (>89); GLUCOSE 166 mg/dL (74-104); HDL CHOLESTEROL 51 mg/dL; LDL CHOLESTEROL,CALCULATED 96 mg/dL; LDL/HDL RATIO 1.9 (<4.4); POTASSIUM 4.3 mmol/L (3.5-4.5); SODIUM 139 mmol/L (135-145); TRIGLYCERIDES 105 mg/dL (48-352); VLDL CHOLESTEROL 21 mg/dL
[2023-04-04 13:23] LABS: THYROID STIMULATING HORMONE 0.49 uIU/mL (0.34-5.60)
== END 2023-04-04 09:02 | disposition home or self-care (01) ==
LOC: LAB.N 09:01
PROVIDERS: ATTEND Physician Assistant Medical
DX: Z00.00 Encounter for general adult medical examination without abnormal findings (principal); E78.5 Hyperlipidemia, unspecified; E11.9 Type 2 diabetes mellitus without complications
CPT/HCPCS: 36415; 80053; 80061; 82043; 82570; 83036; 83721; 84443; 85025

== ENCOUNTER 2023-11-17 06:43 | Outpatient (CLI) | payer OTHER ==
[2023-11-17 07:41] LABS: ALBUMIN 4.9 g/dL (3.2-5.5); ALKALINE PHOSPHATASE 53 IU/L (42-121); ALT ALANINE AMINOTRANSFERASE 25 IU/L (10-60); AST ASPARTATE AMINOTRANSFERASE 33 IU/L (10-42); BILIRUBIN,TOTAL 0.8 mg/dL (0.2-1.0); BUN - BLOOD UREA NITROGEN 14 mg/dL (6-20); CALCIUM 10.3 mg/dL (8.5-10.3); CARBON DIOXIDE - CO2 29 mmol/L (21-32); CHLORIDE 101 mmol/L (101-111); CHOL/HDL RATIO 4.3 (<4.4); CHOLESTEROL 151 mg/dL; CREATININE 0.6 mg/dL (0.6-1.3); GFR - MDRD 105 (>89); GLUCOSE 174 mg/dL (74-104); HDL CHOLESTEROL 35 mg/dL; LDL CHOLESTEROL,CALCULATED 65 mg/dL; LDL/HDL RATIO 1.9 (<4.4); POTASSIUM 4.4 mmol/L (3.5-4.5); SODIUM 138 mmol/L (135-145); TOTAL PROTEIN 7.4 g/dL (6.4-8.9); TRIGLYCERIDES 254 mg/dL; VLDL CHOLESTEROL 51 mg/dL
[2023-11-17 14:36] LABS: ESTIMATED AVERAGE GLUCOSE 186 mg/dL (70-100); HEMOGLOBIN A1c% 8.1 % (4.27-6.07)
== END 2023-11-17 06:44 | disposition home or self-care (01) ==
LOC: LAB 06:43
PROVIDERS: ATTEND Physician Assistant Medical
DX: E11.9 Type 2 diabetes mellitus without complications (principal); E55.9 Vitamin D deficiency, unspecified; R53.83 Other fatigue
CPT/HCPCS: 36415; 80053; 80061; 82306; 82607; 83036; 83721